=== PATIENT | female | born 1970 | race African-American/Black ===

== ENCOUNTER 2017-06-02 12:48 | Inpatient (IN) | payer OTHER ==
[2017-06-02] MEDS ORDERED: Dexamethasone 10 MG/ML VIAL ONE (13:06)
[2017-06-02] MEDS ORDERED: Magnesium Sulfate 2 GM/100 ML BAG ONE (13:07)
[2017-06-02] MEDS ORDERED: Albuterol Sulfate 2.5 mg/3 ml Neb ONE (13:13)
[2017-06-02] MEDS ORDERED: Albuterol Sulfate 2.5 mg/0.5 ml Neb ONE ×3 (13:13→14:19)
[2017-06-02 13:19] LABS: Hematocrit 38.1 % (36.0-47.0); Mean Platelet Volume 8.5 fL (7.4-10.4); Red Blood Cell (RBC) Count 3.76 mill/uL (4.20-5.40); White Blood Cell (WBC) Count 22.1 thou/uL (4.8-10.8)
[2017-06-02 13:21] LABS: Oxyhemoglobin 94.5 % (94.0-97.0); Sodium 140 mmol/L (135-148)
[2017-06-02 13:22] LABS: Mode ROOM AIR; Modified Allen's Test POSITIVE
[2017-06-02 13:41] LABS: Neutrophil 53 % (42-75)
[2017-06-02 13:42] LABS: Lactic Acid - Sepsis 1.8 mmol/L (0.5-2.2)
[2017-06-02 13:44] LABS: ALT (SGPT) 17 U/L (8-55); AST (SGOT) 16 U/L (5-34); Alkaline Phosphatase 71 U/L (40-150); Anion Gap 14 mmol/L (10-20); BUN (Urea Nitrogen) Less than 4 mg/dL (7.0-18.7); Bilirubin, Total 1.8 mg/dL (0.2-1.2); CK (CPK) 151 U/L (29-168); Calc. Creatinine Clearance 0 mL/min (70-130); Calcium 9.6 mg/dL (7.8-10.44); Carbon Dioxide 21 mmol/L (22-29); Chloride 107 mmol/L (98-107); Estimated GFR-MDRD Greater than 90; Globulin 3.4 g/dL (2.4-3.5); Lipase 31 U/L (8-78); Protein, Total 7.9 g/dL (6.0-8.3)
[2017-06-02 13:47] LABS: Troponin I Less than 0.010 ng/mL (< 0.028)
--- NOTE | 2017-06-02 13:55 | RAD ---
PORTABLE CHEST 1 VIEW: Date: 06/02/17 Time: 1318 hours HISTORY: Difficulty breathing, chest pain. FINDINGS: Comparison made with exam of 02/04/15. The heart size is normal. The lungs are well expanded without focal areas of consolidation, pneumoth orax, or pleural effusions. IMPRESSION: No radiographic evidence of acute cardiopulmonary process. POS: [facility]
--- NOTE | 2017-06-02 15:18 | HP ---
PRIMARY CARE PROVIDER: [facility]. Referred to the [facility] by [facility] for acute asthma exjhoana crespo. HISTORY OF PRESENT ILLNESS: The patient presents with 2 days of acute shortness of breath, nonprodu ctive cough, chills, sweats, pleuritic chest pain, mainly left inframammary coming around to her gerson k. She states she has a history of asthma, bipolar disease, hypertension. CURRENT MEDICATIONS: Metoprolol 12.5 mg twice a day, quetiapine 200 mg at bedtime, Wellbutrin-XL 30 0 mg once a day, Paxil 20 mg a day. ALLERGIES: No known drug allergies. PAST SURGICAL HISTORY: None. FAMILY HISTORY: Father, unknown medical state. Mother, coronary artery disease, hypertension, and diabetes. SOCIAL HISTORY: , smokes one pack a day, smoked more in the past. Uses occasional recreatio nal THC. She states she does not drink on a regular basis, but when she gets stressed, she will dri nk until she passes out. She currently drinks debbie. She says she gave up on vodka. CODE STATUS: Full. REVIEW OF SYSTEMS: General: She has a little headache, no dizziness or fainting. Eyes: No double vision, blurred vision, or flashing lights. EARS, NOSE AND THROAT: No ear pain or drainage. No n david bleeding. No trouble swallowing. Cardiac: No pressure, chest pain, no orthopnea. Respiratio ns: See present illness. Gastrointestinal: No nausea, vomiting, diarrhea, constipation, or blood in her stools. Genitourinary: No hematuria or dysuria. Musculoskeletal: No pain or swelling in h er arms or legs. Neurologic: No strokes, seizures or focal weakness. Psychiatric: History of bip olar syndrome. She states she is doing okay on her current medications. Skin: No bruising, bleedi ng or rash. Heme/Lymph: No tender or swollen lymph nodes in axilla, inguinal or cervical area. PHYSICAL EXAMINATION: GENERAL: She is alert, in no acute distress at the present time. VITAL SIGNS: Blood pressure currently 158/88, pulse ranges from 104-117, respiratory rate ranges fr om 20-24, temperature is 98.8 and 99.2 measured here, O2 sat is 96+ on room air. HEAD, EYES, EARS, NOSE AND THROAT: Reveals pupils equal, round, and reactive to light. Extraocular movements are intact. Sclerae white. Tympanic membranes clear. Nose clear. Throat is clear. NECK: Supple, without jugular venous distention, adenopathy, thyromegaly or bruits. CHEST: Hyperresonant with decreased breath sounds and expiratory wheezes in all page. HEART: Had tachycardic rhythm approximately 120 when I listened to her, regular rate and rhythm, no murmurs. First and second heart sounds clear. ABDOMEN: Soft. Bowel sounds normal. No hepatosplenomegaly, no mass, no rebound, no bruits. EXTREMITIES: Reveal no cyanosis, clubbing or edema. PULSES: Carotid, radial, femoral, and dorsalis pedis pulses intact. SKIN: Warm and dry without bruises or rash. HEME/LYMPH: Reveals no tender or swollen lymph nodes in axilla, inguinal or cervical area. NEUROLOGICAL: Cranial nerves II-XII are intact. Deep tendon reflexes symmetric. Moves all extremi ties. IMAGING: EKG sinus tachycardia with nonspecific ST-T abnormality, reviewed by me. Chest x-ray: Hy perinflation with radiographic evidence of COPD. She has a vertical heart, reviewed by me. LABORATORY: White count 22,100, hemoglobin 12.8, platelet count 247,000. Arterial blood gas reveal ed an O2 of 80, CO2 of 29.4, pH of 7.44. Chemistries: Comp metabolic profile was unremarkable. Lac tic acid normal at 1.8. ADMITTING DIAGNOSES: 1. Acute exacerbation of chronic obstructive pulmonary disease. 2. Tobacco abuse. 3. Tetrahydrocannabinol abuse. 4. Hypertension. 5. Bipolar syndrome. PLAN: 1. Admit to medical floor. O2 to keep saturations greater than 92, q.4 hour 3 mL nebulizers with D uoNeb q.2 hours p.r.n., IV steroids, 20 mg of Solu-Medrol q.6 hours, IV Levaquin 750 mg a day, hold beta per, consider amlodipine as a preplacement if needed.
[2017-06-02] MEDS ORDERED: Ondansetron ODT 4 MG TAB PO PRN (16:39)
[2017-06-02] MEDS ORDERED: HYDROcodone/Acetaminophen 5/325 mg Tablet PO PRN (16:39)
[2017-06-02] MEDS ORDERED: Ipratropium Bromide 2.5 ml Neb NEB PRN (16:39)
[2017-06-02 16:44] VITALS: BMI 24.5
[2017-06-02] MEDS: Acetaminophen 325 MG TAB PO PRN (18:51)
[2017-06-02] MEDS: Ketorolac Tromethamine 30 MG/ML VIAL IVP PRN (19:26)
[2017-06-02] MEDS: Zolpidem Tartrate 5 MG TAB PO PRN (22:57)
[2017-06-03 05:45] LABS: Anion Gap 16 mmol/L (10-20); BUN (Urea Nitrogen) 5 mg/dL (7.0-18.7); Calc. Creatinine Clearance 106 mL/min (70-130); Calcium 9.1 mg/dL (7.8-10.44); Carbon Dioxide 16 mmol/L (22-29); Chloride 112 mmol/L (98-107); Estimated GFR-MDRD Greater than 90
[2017-06-03] MEDS: Acetaminophen 325 MG TAB PO PRN ×2 (05:49→18:18)
[2017-06-03 06:00] LABS: #Lymphocytes 1.1 thou/uL (1.20-3.40); #Monocytes 0.4 thou/uL (0.11-0.59); #Neutrophils 17.8 thou/uL (1.40-6.50); %Basophils 0.2 % (0.0-1.0); %Eosinophils 0.1 % (0.0-10.0); %Lymphocytes 5.8 % (21.0-51.0); Hematocrit 30.8 % (36.0-47.0); Mean Platelet Volume 9.1 fL (7.4-10.4); Red Blood Cell (RBC) Count 3.04 mill/uL (4.20-5.40); White Blood Cell (WBC) Count 19.4 thou/uL (4.8-10.8)
[2017-06-03] MEDS ORDERED: Diabetic Tussin 200 MG/10 ML UDCUP PO PRN (06:40)
[2017-06-03] MEDS ORDERED: Calcium Carbonate 500 MG ChewTAB PO PRN (06:40)
[2017-06-03] MEDS ORDERED: Ondansetron HCl/PF 4 MG/2 ML Vial IVP PRN (06:40)
[2017-06-03] MEDS ORDERED: Milk Of Magnesia 30 ML UDCUP PO PRN (06:40)
[2017-06-03] MEDS ORDERED: Sodium Chloride 0.65% Nasal 44 ML BOT EA NARE PRN (06:40)
[2017-06-03] MEDS ORDERED: cloNIDine 0.1 MG TAB PO PRN (06:40)
[2017-06-03] MEDS ORDERED: Eucerin (Mineral Oil/Petrolatum,White) 30 gm Jar TOP PRN (06:40)
[2017-06-03] MEDS ORDERED: Benzonatate 100 MG CAP PO PRN (06:40)
[2017-06-03] MEDS ORDERED: Mag-Al 1200 mg/1200 mg/30 ML UDCUP PO PRN (06:40)
[2017-06-03] MEDS ORDERED: hydrALAZINE 20 MG/ML VIAL SLOW IVP PRN (06:40)
[2017-06-03] MEDS ORDERED: Chloraseptic Spray 180 ml Bottle PO PRN (06:40)
[2017-06-03] MEDS ORDERED: Loratadine 10 MG TAB PO PRN (06:40)
[2017-06-03] MEDS ORDERED: Senokot 8.6 MG TAB PO PRN (06:40)
[2017-06-03] MEDS ORDERED: Loperamide HCl 2 MG CAP PO PRN (06:40)
--- NOTE | 2017-06-03 06:40 | PDOC.PN ---
- Subjective Encounter Start Date: 06/03/17 Encounter Start Time: 06:38 -: old records requested/rev Patient seen and examined. last night had chest pain which was related with GERD.. No overnight events, still short of breath and wheezing - Objective Resuscitation Status: Resuscitation Status FULL:Full Resuscitation MAR Reviewed: Yes Vital Signs & Weight: Vital Signs (12 hours) Temp Pulse Resp BP BP Pulse Ox 06/03/17 06:20 100 16 96 06/03/17 04:29 99.1 F 107 H 20 158/68 H 94 L 06/03/17 03:03 95 06/03/17 02:19 16 06/02/17 23:59 98.6 F 106 H 20 130/61 97 06/02/17 22:00 119 H 16 97 06/02/17 19:51 99.3 F 107 H 20 97 06/02/17 19:35 99.3 F 119 H 20 164/77 H 97 06/02/17 18:52 99.1 F 120 H 24 H 148/68 H 98 Weight Weight 166 lb 3 oz I&O: 06/01/17 06/02/17 06/03/17 06:59 06:59 06:59 Intake Total 720 Balance 720 Result Diagrams: 06/03/17 04:18 06/03/17 04:18 Radiology Reviewed by me: Yes (chest xray) Phys Exam - Physical Examination Constitutional: NAD HEENT: PERRLA, moist MMs, sclera anicteric Neck: no JVD, supple Respiratory: no rales, wheezing present Cardiovascular: RRR, no significant murmur, no rub Gastrointestinal: soft, non-tender, no distention, positive bowel sounds Musculoskeletal: no edema, pulses present Neurological: non-focal, normal sensation, moves all 4 limbs Lymphatic: no nodes Psychiatric: normal affect, A&O x 3 Skin: no rash, normal turgor Dx/Plan (1) COPD exacerbation Code(s): J44.1 - CHRONIC OBSTRUCTIVE PULMONARY DISEASE W (ACUTE) EXACERBATION Status: Acute (2) Leucocytosis Code(s): D72.829 - ELEVATED WHITE BLOOD CELL COUNT, UNSPECIFIED Status: Acute (3) Tobacco abuse Code(s): Z72.0 - TOBACCO USE Status: Chronic (4) Cannabis abuse Code(s): F12.10 - CANNABIS ABUSE, UNCOMPLICATED Status: Chronic (5) Hypertension Code(s): I10 - ESSENTIAL (PRIMARY) HYPERTENSION Status: Chronic (6) Bipolar disorder Code(s): F31.9 - BIPOLAR DISORDER, UNSPECIFIED Status: Chronic (7) Macrocytic anemia Code(s): D53.9 - NUTRITIONAL ANEMIA, UNSPECIFIED Status: Chronic (8) Chest pain Code(s): R07.9 - CHEST PAIN, UNSPECIFIED Status: Acute - Plan cont current plan of care, continue antibiotics, respiratory therapy * continue solumedrol * continue current duoneb * continue levaquin * add dulera * add mucinex * add protonix * medication reviewed as below * symptomatic treatment. * add folic acid, vitamn b12 and ferrous sulfate * repeat labs tomorrow * high wbc is likely due to steroid * chest pain is non cardiac Review of Systems - Review of Systems Eyes: negative: Pain, Vision Change, Conjunctivae Inflammation, Eyelid Inflammation, Redness, Other ENT: negative: Ear Pain, Ear Discharge, Nose Pain, Nose Discharge, Nose Congestion, Mouth Pain, Mouth Swelling, Throat Pain, Throat Swelling, Other Respiratory: Cough, Shortness of Breath Cardiovascular: negative: Chest Pain, Palpitations, Orthopnea, Paroxysmal Noc. Dyspnea, Edema, Light Headedness, Other Gastrointestinal: negative: Nausea, Vomiting, Abdominal Pain, Diarrhea, Constipation, Melena, Hematochezia, Other Genitourinary: negative: Dysuria, Frequency, Incontinence, Hematuria, Retention , Other Musculoskeletal: negative: Neck Pain, Shoulder Pain, Arm Pain, Back Pain, Hand Pain, Leg Pain, Foot Pain, Other Skin: negative: Rash, Lesions, Luis Felipe, Bruising, Other - Medications/Allergies Allergies/Adverse Reactions: Allergies Allergy/AdvReac Type Severity Reaction Status Date / Time No Known Allergies Allergy Verified 06/02/17 16:45 Medications: Current Medications Acetaminophen (Tylenol) 650 mg PO Q4H PRN PRN Reason: Headache/Fever or Pain Last Admin: 06/03/17 05:49 Dose: 650 mg Hydrocodone Bitart/Acetaminophen ([place] 5/325) 1 tab PO Q4H PRN PRN Reason: Moderate Pain (4-6) Last Admin: 06/02/17 20:37 Dose: 1 tab Albuterol/Ipratropium (Duoneb) 3 ml NEB [id number] Last Admin: 06/03/17 06:20 Dose: 3 ml Enoxaparin Sodium (Lovenox) [address] [facility] Levofloxacin 750 mg/ Device 150 mls @ 100 mls/hr IVPB 1700 FUAD Last Admin: 06/02/17 17:23 Dose: 150 mls Influenza Virus Vaccine (Fluzone Quad 9005-9016 Syringe) 0.5 ml IM .ONCE ONE Stop: 06/03/17 09:01 Ipratropium [place] (Atrovent) 2.5 ml NEB Q2H PRN PRN Reason: SOB &/or Wheezing Ketorolac Tromethamine (Toradol) 30 mg IVP Q6H PRN PRN Reason: Pain Stop: 06/07/17 19:18 Last Admin: 06/02/17 19:26 Dose: 30 mg Methylprednisolone Sodium Succinate (Solu-Medrol) [address] [facility] Last Admin: 06/03/17 05:46 Dose: 20 mg Ondansetron HCl (Zofran Odt) 4 mg PO Q6H PRN PRN Reason: Nausea/Vomiting Zolpidem Tartrate (Ambien) 5 mg PO HSPRN PRN PRN Reason: Insomnia Last Admin: 06/02/17 22:57 Dose: 5 mg
[2017-06-03] MEDS: Ferrous Sulfate 325 MG TAB PO SCH (07:37)
[2017-06-03] MEDS: Cyanocobalamin (Vitamin B-12) 1,000 MCG TAB PO SCH (07:37)
[2017-06-03] MEDS: Folic Acid 1 MG TAB PO SCH (07:37)
[2017-06-03] MEDS: guaiFENesin ER 600 MG TAB PO SCH ×2 (07:37→19:52)
[2017-06-03] MEDS: Enoxaparin Sodium 40 MG/0.4 ML SYRINGE SC SCH (07:38)
[2017-06-03] MEDS ORDERED: FLU VACC QS2017-18 36 mo. & older 0.5 ML SYRINGE IM ONE (09:00)
[2017-06-03] MEDS: Mometasone/Formoterol 120 PUFF INHALER INH SCH (18:35)
[2017-06-03] MEDS: Zolpidem Tartrate 5 MG TAB PO PRN (23:17)
[2017-06-04 04:41] LABS: Anion Gap 11 mmol/L (10-20); BUN (Urea Nitrogen) 9 mg/dL (7.0-18.7); Calc. Creatinine Clearance 103 mL/min (70-130); Calcium 9.3 mg/dL (7.8-10.44); Carbon Dioxide 20 mmol/L (22-29); Chloride 112 mmol/L (98-107); Estimated GFR-MDRD Greater than 90
[2017-06-04 04:53] LABS: Band 10 % (5-11); Hematocrit 30.7 % (36.0-47.0); Mean Platelet Volume 8.7 fL (7.4-10.4); Neutrophil 80 % (42-75); Red Blood Cell (RBC) Count 3.01 mill/uL (4.20-5.40); White Blood Cell (WBC) Count 31.2 thou/uL (4.8-10.8)
[2017-06-04] MEDS: Acetaminophen 325 MG TAB PO PRN (05:48)
[2017-06-04] MEDS: Mometasone/Formoterol 120 PUFF INHALER INH SCH ×2 (06:35→18:40)
--- NOTE | 2017-06-04 07:48 | EKG ---
Test Reason : Blood Pressure : / mmHG Vent. Rate : 117 BPM Atrial Rate : 117 BPM P-R Int : 148 ms QRS Dur : 074 ms QT Int : 344 ms P-R-T Axes : 062 039 028 degrees QTc Int : 479 ms Sinus tachycardia Nonspecific T wave abnormality Abnormal ECG When compared with ECG of 10-NOV-2015 22:32, ST more depressed in Anterior leads Nonspecific T wave abnormality now evident in Anterior leads Confirmed by RONNI YEBOAH, SRonak ([id number]) on 06/04/2017 7:47:41 AM Referred By: ALTON Confirmed By:DR. Tristan RUDOLPH MD
[2017-06-04] MEDS: Ferrous Sulfate 325 MG TAB PO SCH (07:53)
[2017-06-04] MEDS: guaiFENesin ER 600 MG TAB PO SCH ×2 (07:53→20:23)
[2017-06-04] MEDS: Folic Acid 1 MG TAB PO SCH (07:53)
[2017-06-04] MEDS: Cyanocobalamin (Vitamin B-12) 1,000 MCG TAB PO SCH (07:53)
[2017-06-04] MEDS: Enoxaparin Sodium 40 MG/0.4 ML SYRINGE SC SCH (07:54)
--- NOTE | 2017-06-04 10:56 | PDOC.PN ---
- Subjective Encounter Start Date: 06/04/17 Encounter Start Time: 10:54 Ms. Queen was seen today in follow-up for asthma exacerbation. She says she is breathing better, but still has the non-productive cough. - Objective Resuscitation Status: Resuscitation Status FULL:Full Resuscitation MAR Reviewed: Yes Vital Signs & Weight: Vital Signs (12 hours) Temp Pulse Resp BP Pulse Ox 06/04/17 10:44 87 16 98 06/04/17 07:59 98.7 F 92 18 95 06/04/17 07:30 98.7 F 92 18 171/77 H 95 06/04/17 06:27 96 16 98 06/04/17 02:27 94 12 Weight Weight 166 lb 3 oz I&O: 06/03/17 06/04/17 06/05/17 06:59 06:59 06:59 Intake Total 720 720 240 Balance 720 720 240 Result Diagrams: 06/04/17 03:34 06/04/17 03:34 Additional Labs: Accuchecks 06/03/17 11:17 POC Glucose 152 H Phys Exam - Physical Examination HEENT: PERRLA Respiratory: no rales, wheezing present + bilateral wheezing Cardiovascular: RRR, no significant murmur Gastrointestinal: soft, non-tender, positive bowel sounds Musculoskeletal: no edema Dx/Plan (1) Acute and chronic respiratory failure Code(s): J96.20 - ACUTE AND CHR RESP FAILURE, UNSP W HYPOXIA OR HYPERCAPNIA Status: Acute (2) COPD exacerbation Code(s): J44.1 - CHRONIC OBSTRUCTIVE PULMONARY DISEASE W (ACUTE) EXACERBATION Status: Acute (3) Leucocytosis Code(s): D72.829 - ELEVATED WHITE BLOOD CELL COUNT, UNSPECIFIED Status: Acute (4) Bipolar disorder Code(s): F31.9 - BIPOLAR DISORDER, UNSPECIFIED Status: Chronic (5) Hypertension Code(s): I10 - ESSENTIAL (PRIMARY) HYPERTENSION Status: Chronic (6) Tobacco abuse Code(s): Z72.0 - TOBACCO USE Status: Chronic - Plan * COPD exacerbation- slowly improving * Will change the steroids to oral - re-assess in the AM * HTN- blood pressure is elevated- she has been taken of Metoprolol- due to bronchospasm, and will add Amlodipine. * Tobacco Abuse- Smoking cessation was discussed * Leukocytosis- likely from steroids- will re-check after steroids lowered
[2017-06-04] MEDS ORDERED: Bupropion 150 MG XL TAB PO SCH (12:45)
[2017-06-04] MEDS ORDERED: Amlodipine 5 MG TAB PO SCH (12:45)
[2017-06-04] MEDS ORDERED: Lurasidone HCl 40 MG TABLET PO SCH (13:00)
[2017-06-04] MEDS ORDERED: PARoxetine 20 MG TAB PO SCH (13:00)
[2017-06-04] MEDS: Ketorolac Tromethamine 30 MG/ML VIAL IVP PRN (13:16)
[2017-06-05 05:24] LABS: Anion Gap 10 mmol/L (10-20); BUN (Urea Nitrogen) 8 mg/dL (7.0-18.7); Calc. Creatinine Clearance 95 mL/min (70-130); Calcium 8.8 mg/dL (7.8-10.44); Carbon Dioxide 21 mmol/L (22-29); Chloride 110 mmol/L (98-107); Estimated GFR-MDRD 84
[2017-06-05 06:18] LABS: Band 1 % (5-11); Hematocrit 31.3 % (36.0-47.0); Macrocytosis SLIGHT = 6-15 cells (100X) (0-5/hpf); Mean Platelet Volume 7.9 fL (7.4-10.4); Neutrophil 67 % (42-75); Red Blood Cell (RBC) Count 3.09 mill/uL (4.20-5.40); White Blood Cell (WBC) Count 21.3 thou/uL (4.8-10.8)
[2017-06-05] MEDS: Mometasone/Formoterol 120 PUFF INHALER INH SCH (06:21)
[2017-06-05] MEDS ORDERED: predniSONE 20 MG TAB PO SCH (08:00)
[2017-06-05] MEDS: Ferrous Sulfate 325 MG TAB PO SCH (08:22)
[2017-06-05] MEDS: Cyanocobalamin (Vitamin B-12) 1,000 MCG TAB PO SCH (08:23)
[2017-06-05] MEDS: Folic Acid 1 MG TAB PO SCH (08:24)
[2017-06-05] MEDS: guaiFENesin ER 600 MG TAB PO SCH (08:25)
[2017-06-05] MEDS: Enoxaparin Sodium 40 MG/0.4 ML SYRINGE SC SCH (08:35)
[2017-06-05] MEDS ORDERED: PARoxetine 20 MG TAB PO SCH (09:00)
[2017-06-05] MEDS ORDERED: Lurasidone HCl 40 MG TABLET PO SCH (09:00)
[2017-06-05] MEDS ORDERED: traZODone HCl 50 MG TAB PO SCH (09:00)
[2017-06-05] MEDS ORDERED: PAROXETINE HCL 30 MG PO SCH (09:00)
[2017-06-05] MEDS ORDERED: LURASIDONE HCL 40 MG PO SCH (09:00)
[2017-06-05] MEDS ORDERED: Amlodipine 5 MG TAB PO SCH (09:00)
[2017-06-05] MEDS ORDERED: Bupropion 150 MG XL TAB PO SCH (09:00)
[2017-06-05 13:02] VITALS: BP 170/94; TEMP 98.5
--- NOTE | 2017-06-05 15:48 | PDOC.PN ---
- Subjective Encounter Start Date: 06/05/17 Encounter Start Time: 15:46 Ms. Queen was seen today in follow-up of COPD exacerbation. She is feeling much better. She denies chest pain or difficulty breathing. - Objective Resuscitation Status: Resuscitation Status FULL:Full Resuscitation MAR Reviewed: Yes Vital Signs & Weight: Vital Signs (12 hours) Temp Pulse Resp BP BP Pulse Ox 06/05/17 13:29 102 H 16 98 06/05/17 12:00 98.5 F 112 H 20 170/94 H 95 06/05/17 10:03 91 16 98 06/05/17 08:25 98.8 F 104 H 18 92 L 06/05/17 08:24 104 H 164/92 H 06/05/17 07:46 98.8 F 104 H 18 164/92 H 92 L 06/05/17 06:22 97 06/05/17 06:21 97 16 97 06/05/17 06:19 97 16 97 Weight Weight 166 lb 3 oz I&O: 06/04/17 06/05/17 06/06/17 06:59 06:59 06:59 Intake Total 720 1200 Balance 720 1200 Result Diagrams: 06/05/17 04:49 06/05/17 04:49 Phys Exam - Physical Examination HEENT: PERRLA Respiratory: no wheezing, no rales, no rhonchi, clear to auscultation bilateral Cardiovascular: RRR, no significant murmur Gastrointestinal: soft, non-tender, positive bowel sounds Musculoskeletal: no edema Dx/Plan (1) Acute and chronic respiratory failure Code(s): J96.20 - ACUTE AND CHR RESP FAILURE, UNSP W HYPOXIA OR HYPERCAPNIA Status: Acute (2) COPD exacerbation Code(s): J44.1 - CHRONIC OBSTRUCTIVE PULMONARY DISEASE W (ACUTE) EXACERBATION Status: Acute (3) Leucocytosis Code(s): D72.829 - ELEVATED WHITE BLOOD CELL COUNT, UNSPECIFIED Status: Acute (4) Bipolar disorder Code(s): F31.9 - BIPOLAR DISORDER, UNSPECIFIED Status: Chronic (5) Hypertension Code(s): I10 - ESSENTIAL (PRIMARY) HYPERTENSION Status: Chronic (6) Tobacco abuse Code(s): Z72.0 - TOBACCO USE Status: Chronic - Plan * COPD exacerbation- improved * Leukocytosis- improved- in review of her previous electronic records, her WBC count has been elevated back in 2014. I suspect due to smoking. She is therefore close to her baseline * She is stable for discharge.
--- NOTE | 2017-06-05 22:17 | DIS ---
PRIMARY CARE PHYSICIAN: The patient does not have a primary care physician. DATE OF ADMISSION: 06/02/2017 DATE OF DISCHARGE: 06/05/2017 DISCHARGE DISPOSITION: Home. PRIMARY DISCHARGE DIAGNOSES: 1. Acute on chronic respiratory failure. 2. Chronic obstructive pulmonary disease exacerbation. 3. Hypertension. 4. History of bipolar disorder. 5. Active tobacco use. DISCHARGE MEDICATIONS: Include Levaquin 500 mg 1 p.o. q. day, prednisone 10 mg daily and both of the se are for 5 days. Please note the patient was taken off of metoprolol due to COPD. She was placed on amlodipine 5 mg daily. Continue Bupropion 300 mg daily, Latuda 40 mg daily, Dulera 2 puffs twice a day, paroxetine 30 mg daily, and Proventil inhaler. PROCEDURES DONE DURING ADMISSION: No special procedures done. CODE STATUS: FULL CODE. ALLERGIES: No known drug allergies. HOSPITAL COURSE: Ms. Queen is a pleasant 47-year-old female who was admitted after having difficul ty breathing, cough, and congestion. She was found to have acute on chronic respiratory failure seco ndary to chronic obstructive pulmonary disease. She is a chronic smoker. She improved with IV antib iotics, neb treatments, supplemental oxygen and steroids. She was able to be discharged home 2 days later and was counseled on smoking cessation. It was also noted that she had a leukocytosis, likely from smoking this dated back to 2014 and her white blood cell count even despite being elevated, it w as actually fairly close to her what appears to be her baseline.
== END 2017-06-05 16:26 | disposition home or self-care (01) | DRG 202 ==
LOC: ERS 12:48 → T4-A 14:22
PROVIDERS: ADMIT Internal Medicine; ATTEND Internal Medicine
DX: J45.901 Unspecified asthma with (acute) exacerbation (principal); J96.21 Acute and chronic respiratory failure with hypoxia; J44.1 Chronic obstructive pulmonary disease with (acute) exacerbation; I10 Essential (primary) hypertension; F17.210 Nicotine dependence, cigarettes, uncomplicated; F31.9 Bipolar disorder, unspecified; F12.10 Cannabis abuse, uncomplicated; D53.9 Nutritional anemia, unspecified; Z91.5 Personal history of self-harm
CPT/HCPCS: 36415; 36416; 71010; 80048; 80053; 82550; 82553; 82805; 83605; 83690; 84484; 85025; 87040; 90471; 90682; 93005; 93010; 94640; 96361; 96365; 96375; A4216; G0008; J0692; J1100; J1650; J1885; J1956; J2920; J3475; J7506; J7611; J7620; Q2036

== ENCOUNTER 2019-03-16 22:02 | Emergency (ER) | payer OTHER ==
--- NOTE | 2019-03-16 22:41 | RAD ---
RADIOGRAPH CHEST 1 VIEW: DATE: 03/16/2019 HISTORY: 41-year-old female status post syncope with chills and generalized weakness. FINDINGS: There are no airspace densities, pulmonary edema, pneumothorax, or cardiomegaly. The lateral costophr enic angles are sharp. IMPRESSION: No acute cardiopulmonary findings.
[2019-03-16 22:55] LABS: Band 2 % (5-11); Eosinophils 2 % (0-10); Lymphocytes 32 % (21-51); MDiff Complete? YES; Mean Corpuscular HGB CONC 35.5 g/dL (32.0-36.0); Mean Corpuscular Hemoglobin 35.4 pg (27.0-31.0); Mean Corpuscular Volume 99.7 fL (78.0-98.0); Monocytes 8 % (0-10); Neutrophil 56 % (42-75); Platelet Count 315 thou/uL (130-400); Platelet Morphology Comment Appears Adequate; RBC Distribution Width 13.3 % (11.5-14.5); Red Blood Cell (RBC) Count 3.68 mill/uL (4.20-5.40); White Blood Cell (WBC) Count 20.5 thou/uL (4.8-10.8)
[2019-03-16 22:59] LABS: ALT (SGPT) 12 U/L (8-55); AST (SGOT) 18 U/L (5-34); Alkaline Phosphatase 68 U/L (40-150); Anion Gap 19 mmol/L (10-20); BUN (Urea Nitrogen) 9 mg/dL (7.0-18.7); Bilirubin, Total 2.3 mg/dL (0.2-1.2); Calc. Creatinine Clearance 0 mL/min (70-130); Calcium 10.2 mg/dL (7.8-10.44); Carbon Dioxide 19 mmol/L (22-29); Chloride 101 mmol/L (98-107); Estimated GFR-MDRD 66; Globulin 3.3 g/dL (2.4-3.5); Glucose 99 mg/dL (70-105); Magnesium 1.8 mg/dL (1.6-2.6); Potassium 3.1 mmol/L (3.5-5.1); Protein, Total 8.3 g/dL (6.0-8.3); Sodium 136 mmol/L (136-145)
--- NOTE | 2019-03-16 22:59 | CT ---
CT BRAIN NONCONTRAST: DATE: 03/16/2019 HISTORY: 49-year-old female status post fall due to syncope FINDINGS: There is no evidence of acute intra-axial or extra-axial hemorrhage. There is no midline shift or any other mass effect. There is no extra-axial fluid collection. There is no evidence of obstructive hydrocephalus. Calvarium is intact. IMPRESSION: No acute intracranial findings.
[2019-03-16] MEDS ORDERED: Potassium Chloride 20 MEQ TAB ONE (23:11)
[2019-03-16 23:53] LABS: Bacteria/HPF 2+ HPF (None Seen); Bilirubin Negative (Negative); Blood, Urine 1+ (Negative); Clarity Clear (Clear); Glucose, Urine (Dipstick) Normal (Negative); Leukocyte Negative Leu/uL (Negative); Nitrite 1+ (Negative); Protein, Urine (Dipstick) Negative (Neg-Trace); RBC/HPF 0-3 HPF (0-3); Urobilinogen Normal mg/dL (Less than 2); WBC/HPF 0-3 HPF (0-3)
[2019-03-17 00:04] LABS: Amphetamine Not Detected (NotDetected); Barbiturates Screen Not Detected (NotDetected); Benzodiazepine Screen Not Detected (NotDetected); Cocaine Metabolite Screen Not Detected (NotDetected); Medtox Control Line Valid? VALID (VALID); Medtox Reader # READER 1; Methadone Not Detected (NotDetected); Methamphetamine Not Detected (NotDetected); Opiate Screen Not Detected (NotDetected); Oxycodone Screen Not Detected (NotDetected); Phencyclidine (PCP) Not Detected (NotDetected); THC/Cannabinoid Screen Detected (NotDetected); Tricyclic Screen Not Detected (NotDetected)
[2019-03-17] MEDS ORDERED: Cephalexin 250 MG CAP ONE (00:20)
[2019-03-17 00:59] LABS: Troponin I Less than 0.010 ng/mL (< 0.028)
== END 2019-03-17 01:10 | disposition home or self-care (01) ==
LOC: ERS 22:02
DX: N39.0 Urinary tract infection, site not specified (principal); E87.6 Hypokalemia; R55 Syncope and collapse; I10 Essential (primary) hypertension; J45.909 Unspecified asthma, uncomplicated; F31.9 Bipolar disorder, unspecified; F17.210 Nicotine dependence, cigarettes, uncomplicated; Z79.899 Other long term (current) drug therapy
CPT/HCPCS: 36415; 70450; 71045; 80053; 80306; 81003; 81015; 83735; 84484; 85025; 93005; 94640; 94760; 96360; J7620

== ENCOUNTER 2019-08-01 16:07 | Emergency (ER) | payer OTHER ==
--- NOTE | 2019-08-01 17:13 | RAD ---
RADIOGRAPH CHEST 2 VIEWS: HISTORY: 49-year-old female with cough. FINDINGS: There is no air space density, pulmonary edema, pleural effusion, pneumothorax, or cardiomegaly. IMPRESSION: No acute cardiopulmonary findings. jn POS: OFF
== END 2019-08-01 19:46 | disposition home or self-care (01) ==
LOC: ERS 16:07
DX: J10.1 Influenza due to other identified influenza virus with other respiratory manifestations (principal); J45.909 Unspecified asthma, uncomplicated; F17.210 Nicotine dependence, cigarettes, uncomplicated; F31.9 Bipolar disorder, unspecified; I10 Essential (primary) hypertension; Z79.899 Other long term (current) drug therapy; Z71.6 Tobacco abuse counseling
CPT/HCPCS: 71046; 87804; 94640; 96360

== ENCOUNTER 2019-08-06 10:38 | Emergency (ER) | payer OTHER ==
[2019-08-06] MEDS ORDERED: HYDROcodone/Acetaminophen 10/325 mg Tablet ONE (11:37)
[2019-08-06] MEDS ORDERED: Lidocaine 1% w/Epinephrine 1:100K 20 ML VIAL ONE (11:37)
== END 2019-08-06 12:45 | disposition home or self-care (01) ==
LOC: ERS 10:38
DX: L02.31 Cutaneous abscess of buttock (principal); F31.9 Bipolar disorder, unspecified; F17.210 Nicotine dependence, cigarettes, uncomplicated; J45.909 Unspecified asthma, uncomplicated; Z79.899 Other long term (current) drug therapy
CPT/HCPCS: 10060

== ENCOUNTER 2020-11-14 13:47 | Emergency (ER) | payer OTHER ==
[2020-11-14 14:23] LABS: Hemoglobin 14.2 g/dL (12.0-16.0); Mean Corpuscular HGB CONC 34.1 g/dL (32.0-36.0); Mean Corpuscular Hemoglobin 33.5 pg (27.0-31.0); Mean Corpuscular Volume 98.3 fL (78.0-98.0); Mean Platelet Volume 8.4 fL (7.4-10.4); Platelet Count 346 thou/uL (130-400); RBC Distribution Width 12.1 % (11.5-14.5); Red Blood Cell (RBC) Count 4.26 mill/uL (4.20-5.40); White Blood Cell (WBC) Count 20.6 thou/uL (4.8-10.8)
[2020-11-14 14:41] LABS: Band 1 % (5-11); Eosinophils 5 % (0-10); Lymphocytes 21 % (21-51); MDiff Complete? YES; Monocytes 4 % (0-10); Neutrophil 63 % (42-75); Platelet Morphology Comment Appears Adequate; Polychromasia SLIGHT = 2-3 cells (100X) (0-2/hpf); Reactive Lymphocytes 6 % (0-10)
[2020-11-14 14:46] LABS: ALT (SGPT) 14 U/L (8-55); AST (SGOT) 22 U/L (5-34); Albumin 5.3 g/dL (3.5-5.0); Alkaline Phosphatase 86 U/L (40-110); Anion Gap 17 mmol/L (10-20); BUN (Urea Nitrogen) 8 mg/dL (7.0-18.7); Bilirubin, Total 2.2 mg/dL (0.2-1.2); Calc. Creatinine Clearance 0 mL/min (70-130); Calcium 10.6 mg/dL (7.8-10.44); Carbon Dioxide 20 mmol/L (22-29); Chloride 103 mmol/L (98-107); Glucose 122 mg/dL (70-105); Lipase 28 U/L (8-78); Potassium 3.5 mmol/L (3.5-5.1); Protein, Total 9.3 g/dL (6.0-8.3); Sodium 136 mmol/L (136-145)
[2020-11-14] MEDS ORDERED: Ketorolac Tromethamine 30 MG/ML VIAL ONE (16:20)
== END 2020-11-14 17:25 | disposition home or self-care (01) ==
LOC: ERS 13:47
DX: R07.89 Other chest pain (principal); D72.829 Elevated white blood cell count, unspecified; I10 Essential (primary) hypertension; F17.210 Nicotine dependence, cigarettes, uncomplicated
CPT/HCPCS: 36415; 71045; 80053; 83690; 84484; 85025; 85379; 93005; 96374; J1885

== ENCOUNTER 2022-03-13 06:23 | Emergency (ER) | payer OTHER ==
[2022-03-13] MEDS ORDERED: Lidocaine 1% MPF 2 ML VIAL ONE ×2 (06:48→06:52)
== END 2022-03-13 07:46 | disposition home or self-care (01) ==
LOC: ERS 06:23
DX: K61.0 Anal abscess (principal); I10 Essential (primary) hypertension; F17.210 Nicotine dependence, cigarettes, uncomplicated; Z79.899 Other long term (current) drug therapy
CPT/HCPCS: 46050